=== PATIENT | male | born 1955 | race Caucasian/White ===

== ENCOUNTER 2020-08-05 17:15 | Emergency (ER) | payer BC ==
[~2020-08-05] VITALS: Ht 177.8 cm; Wt 95.1 kg
--- NOTE | 2020-08-05 17:37 | PHYS DOC ---
Past History Past Medical History: Diabetes Past Medical History COVID ==+ SINCE 07/25 General Adult EDM: Chief Complaint: SHORTNESS OF BREATH HPI: HPI: ".. I got COVID back on .. but I still feeling off.." Patient is a 65 year old male who presents with above hx + COVID since symptoms, presents with increased dyspnea and hypoxia with activity. No recent travel. No specific ill contacts other than his contraction Covid infection. No history immunosuppression. Pt. follows with Dr. Jake Terrazas. Does have a history of diabetes. Patient follows with Dr. Terrazas as primary Review of Systems: Review of Systems: Constitutional: Subjective complaints fever or chills Eyes: Denies change in visual acuity HENT: Denies nasal congestion or sore throat Respiratory: History nonproductive cough and shortness of breath Cardiovascular: Denies chest pain or edema GI: Denies abdominal pain, nausea, vomiting, bloody stools or diarrhea : Denies dysuria Musculoskeletal: Complains of generalized muscle and arthritic arthralgic pain Integument: Denies rash Neurologic: Denies headache, focal weakness or sensory changes Endocrine: Denies polyuria or polydipsia Lymphatic: Denies swollen glands Psychiatric: Denies depression or anxiety Family History: Family History: Noncontributory to presentation Current Medications: Current Meds: See nursing for home meds Allergies: Allergies: No known drug allergies Physical Exam: PE: Constitutional: Well developed, well nourished, no acute distress, non-toxic appearance. [] HENT: Normocephalic, atraumatic, bilateral external ears normal, oropharynx moist, no oral exudates, nose placeholder turbinates clear rhinorrhea Eyes: PERRLA, EOMI, conjunctiva normal, no discharge. [] Neck: Normal range of motion, no tenderness, supple, no stridor. [] Cardiovascular:Heart rate regular rhythm, no murmur [] Lungs & Thorax: Bilateral breath sounds "apex with few scattered wheezes on auscultation [] Abdomen: Bowel sounds normal, soft, no tenderness, no masses, no pulsatile masses. [] Skin: Warm, dry, no erythema, no rash. [] Back: No tenderness, no CVA tenderness. [] Extremities: No tenderness, no cyanosis, no clubbing, ROM intact, no edema. No cording appreciated Neurologic: Alert and oriented X 3, normal motor function, normal sensory function, no focal deficits noted. [] Psychologic: Affect anxious, judgement normal, mood normal. [] EKG: EKG: My interpretation of EKG shows a sinus rhythm at 65 bpm. No acute morphology [] Radiology/Procedures: Radiology/Procedures: [][address] [address] IMAGING REPORT Signed PATIENT: PATRICE SUAREZ ACCOUNT: [id number] : 1955 LOCATION: ER AGE: 65 SEX: M EXAM STATUS: REG ER ORD. PHYSICIAN: YORDY BURLESON MD REASON: dyspnea, hypoxia, COVID 07/25 Omni 350 75c PROCEDURE: CT ANGIOGRAPHY CHEST Exam: CT of chest with contrast INDICATION: Dyspnea, hypoxia TECHNIQUE: Sequential axial images through the chest obtained following the administration of 100 mL of Isovue-370 IV contrast. Sagittal and coronal reformatted images were reconstructed from the axial data and reviewed. 3-D reformatted images were reconstructed from the axial data and reviewed. Comparisons: Chest x-ray same day FINDINGS: Visual is portions of the thyroid are unremarkable. No enlarged mediastinal lymph nodes. Heart size is normal. No pericardial effusion. Thoracic aorta has a normal course and caliber. Pulmonary artery is not enlarged. No pulmonary embolus identified within the main, lobar or segmental. Airways are patent. There is patchy areas of groundglass opacity noted at the lung bases bilaterally predominantly in a peripheral distribution. No consolid ation or pneumothorax. No pleural effusion or thickening. Visualized upper abdomen is unremarkable. No suspicious osseous lesions or acute fractures. IMPRESSION: 1. No pulmonary embolus outside within the main, lobar or segmental pulmonary arteries. 2. Diffuse peripheral groundglass opacity favored to be infectious or inflammatory in etiology. Correlate for atypical/viral causes such as Covid. Exposure: One or more of the following in the visualized dose reduction techniques were utilized for this examination: 1. Automated exposure control 2. Adjustment of the MA and/or KV according to patient size 3. Use of iterative of reconstructive technique Electronically signed by: Umang Rosen MD (08/05/2020 6:59 PM) [facility] DICTATED AND SIGNED BY: UMANG ROSEN MD DATE: 08/05/20 1850 CC: YORDY BURLESON MD; JAKE TERRAZAS MD ~MTH0 0 Heart Score: HEART Score for Chest Pain: HEART Score for Chest Pain Response (Comments) Value History Slighlty/Non-Suspicious 0 ECG Normal 0 Age > 65 2 Risk Factors 1 or 2 Risk Factors 1 Troponin < Normal Limit 0 Total 3 Risk Factors: Risk Factors: DM, Current or recent (<one month) smoker, HTN, HLP, family history of CAD, obesity. Risk Scores: Score 0 - 3: 2.5% MACE over next 6 weeks - Discharge Home Score 4 - 6: 20.3% MACE over next 6 weeks - Admit for Clinical Observation Score 7 - 10: 72.7% MACE over next 6 weeks - Early Invasive Strategies Course & Med Decision Making: Course & Med Decision Making Pertinent Labs and Imaging studies reviewed. (See chart for details) Patient follow-up primary care. Patient use MDI 2 puffs 4 times a day. Patient take Zithromax 250 mg a day for 5 days. Patient to use Tylenol and ibuprofen for discomfort. Patient to take Eliquis 2.5 mg twice a day. Patient push fluids. Return if any concerns. Impression: 1. COVID Infection 2. Viral syndrome 3. Elevated D-dimer 0.58 4. Dehydration BUN 34 creatinine 1.5 5. Diabetes 271 [] Dragon Disclaimer: Dragon Disclaimer: This electronic medical record was generated, in whole or in part, using a voice recognition dictation system. Departure Departure: Referrals: JAKE TERRAZAS MD (PCP) Scripts Apixaban (ELIQUIS) 2.5 Mg Tablet 2.5 MG PO BID for dvt,pe for 10 Days, #20 TAB Prov: YORDY BURLESON MD 08/05/20 Prednisone (PREDNISONE) 50 Mg Tablet 50 MG PO DAILY for c for 5 Days, #5 TAB Prov: YORDY BURLESON MD 08/05/20 Azithromycin (ZITHROMAX) 250 Mg Tablet 250 MG PO DAILY for ANTI-BIOTIC for 5 Days, #5 TAB 0 Refills Prov: YORDY BURLESON MD 08/05/20 Dragon Disclaimer This chart was dictated in whole or in part using Voice Recognition software in a busy, high-work load, and often noisy Emergency Department environment. It may contain unintended and wholly unrecognized errors or omissions. YORDY BURLESON MD Aug 05, 2020 17:37
[2020-08-05] MEDS ORDERED: methylPREDNISolone SOD SUCC PF 125 MG/2 ML VIAL. IV ONE (17:45)
[2020-08-05] MEDS ORDERED: ALBUTEROL SULFATE 8GM INHALER. INH ONE (17:45)
[2020-08-05] MEDS ORDERED: IV RINGERS SOLUTION,LACTATED 1,000 ML IV SCH (17:45)
[2020-08-05] MEDS ORDERED: ASPIRIN CHEWABLE 81 MG TABLET. PO ONE (17:45)
[2020-08-05] MEDS ORDERED: AZITHROMYCIN 250 MG TABLET. PO ONE (17:45)
[2020-08-05] MEDS ORDERED: IOHEXOL 350 MG/ML 100 ML VIAL. IV ONE (18:00)
[2020-08-05 18:02] LABS: BASO % 0 % (0-3); EOS % 0 % (0-3); HEMATOCRIT 42.5 % (39.0-53.0); HEMOGLOBIN 14.4 g/dL (13.0-17.5); LYMPH # 0.5 x10^3/uL (1.0-4.8); LYMPH % 6 % (24-48); MEAN CORPUSCULAR HEMOGLOBIN 29 pg (25-35); MEAN CORPUSCULAR HGB CONC 34 g/dL (31-37); MEAN CORPUSCULAR VOLUME 84 fL (79-100); MONO # 0.4 x10^3/uL (0.0-1.1); MONO % 6 % (0-9); NEUT # 6.9 x10^3uL (1.8-7.7); NEUT % 88 % (31-73); PLATELET COUNT 335 x10^3/uL (140-400); RED BLOOD COUNT 5.06 x10^6/uL (4.30-5.70); RED CELL DISTRIBUTION WIDTH 15.8 % (11.5-14.5); WHITE BLOOD COUNT 7.8 x10^3/uL (4.0-11.0)
--- NOTE | 2020-08-05 18:11 | EKG ---
[address] [address] Test Date: 2020-08-05 Test Time: 17:58:55 Pat Name: PATRICE SUAREZ Department: Room: Gender: M Bon[place] Dipper: SHAYNE : 1955 Requested By: YORDY BURLESON Order Number: [id number] Reading MD: Measurements Intervals [place] Rate: 65 P: 53 LA: 162 QRS: 33 QRSD: 88 T: 8 QT: 374 QTc: 390 Interpretive Statements SINUS RHYTHM NORMAL ECG RI6.02 No previous ECG available for comparison
[2020-08-05 18:24] LABS: BGAS PH 7.45 (7.35-7.46)
[2020-08-05 18:28] LABS: CALCIUM 8.7 mg/dL (8.5-10.1); CREATININE 1.5 mg/dL (0.7-1.3); DIRECT BILIRUBIN 0.2 mg/dL (0.0-0.2); MAGNESIUM 2.1 mg/dL (1.8-2.4); POTASSIUM 4.4 mmol/L (3.5-5.1); TOTAL BILIRUBIN 0.5 mg/dL (0.2-1.0); TOTAL PROTEIN 7.1 g/dL (6.4-8.2)
--- NOTE | 2020-08-05 19:01 | RAD ---
Exam: CT of chest with contrast INDICATION: Dyspnea, hypoxia TECHNIQUE: Sequential axial images through the chest obtained following the administration of 100 mL of Isovue-370 IV contrast. Sagittal and coronal reformatted images were reconstructed from the axial data and reviewed. 3-D reformatted images were reconstructed from the axial data and reviewed. Comparisons: Chest x-ray same day FINDINGS: Visual is portions of the thyroid are unremarkable. No enlarged mediastinal lymph nodes. Heart size is normal. No pericardial effusion. Thoracic aorta has a normal course and caliber. Pulmon mckenzie artery is not enlarged. No pulmonary embolus identified within the main, lobar or segmental. Airways are patent. There is patchy areas of groundglass opacity noted at the lung bases bilaterally predominantly in a peripheral distribution. No consolidation or pneumothorax. No pleural effusion or thickening. Visualized upper abdomen is unremarkable. No suspicious osseous lesions or acute fractures. IMPRESSION: 1. No pulmonary embolus outside within the main, lobar or segmental pulmonary arteries. 2. Diffuse peripheral groundglass opacity favored to be infectious or inflammatory in etiology. Tomasz elate for atypical/viral causes such as Covid. Exposure: One or more of the following in the visualized dose reduction techniques were utilized for this examination: 1. Automated exposure control 2. Adjustment of the MA and/or KV according to patient size 3. Use of iterative of reconstructive technique Electronically signed by: Umang Givens MD (08/05/2020 6:59 PM) [facility]
[2020-08-05 19:11] LABS: BARBITURATES NEG (NEG); BENZODIAZEPINES NEG (NEG); CANNABINOIDS NEG (NEG); COCAINE NEG (NEG); METHADONE NEG (NEG); OPIATES NEG (NEG); PHENCYCLIDINE NEG (NEG)
[2020-08-05 19:12] LABS: AMPHETAMINE/METHAMPHETAMINE NEG (NEG)
[2020-08-05 19:15] LABS: BILIRUBIN,URINE NEG (NEG); CLARITY,URINE CLEAR; COLOR,URINE YELLOW; GLUCOSE,URINE NEG (NEG)
[2020-08-05] MEDS ORDERED: APIX2.5T PO (19:15)
[2020-08-05] MEDS ORDERED: PRED50TA PO (19:15)
[2020-08-05] MEDS ORDERED: AZIT250T PO (19:15)
[2020-08-05 19:16] LABS: BACTERIA,URINE 0 /HPF (0-FEW); NITRITE,URINE NEG (NEG); RBC,URINE OCC /HPF (0-2); SQUAMOUS EPITHELIAL CELL,UR FEW /LPF; UROBILINOGEN,URINE 0.2 mg/dL (0.2 mg/dL); WBC,URINE OCC /HPF (0-4)
--- NOTE | 2020-08-05 19:19 | RAD ---
INDICATION: Reason: Dyspnea / Spl. Instructions: / History: COMPARISON: Earlier same day FINDINGS: Single view of chest obtained. Patchy opacities in the bilateral lungs. Cardiac silhouette unremarkable. IMPRESSION: * Patchy opacities bilaterally which could be seen with bilateral infiltrate. Electronically signed by: Bryan Terrazas MD (08/05/2020 7:17 PM) [id number]
[2020-08-05] MEDS ORDERED: APIXABAN 5 MG TABLET. PO ONE (19:45)
[2020-08-05 19:52] VITALS: BP 112/68
== END 2020-08-05 20:08 | disposition home or self-care (01) ==
LOC: ER 17:15
DX: U07.1 COVID-19 (principal); B34.9 Viral infection, unspecified; R79.89 Other specified abnormal findings of blood chemistry; E86.0 Dehydration; E11.9 Type 2 diabetes mellitus without complications
CPT/HCPCS: 36415; 36600; 71045; 71275; 80048; 80076; 80307; 81001; 82550; 82803; 83690; 83735; 83880; 84443; 84484; 85025; 85379; 85610; 85730; 86140; 87040; 93005; 94640; 96361; 96374; 99285; G0238; J2930; J7120; Q9967; 94664